=== PATIENT | male | born 1940 | race Caucasian/White ===

== ENCOUNTER 2017-10-17 11:01 | Observation (INO) | payer OTHER, BC ==
[~2017-10-17] VITALS: Ht 177.8 cm; Wt 87.9 kg
[2017-10-17 13:17] VITALS: BP 158/46; PULSE 60; TEMP 36.7; O2SAT 96; BMI 28.0
[2017-10-17] MEDS ORDERED: HYDR25TA4 PO (13:27)
[2017-10-17] MEDS ORDERED: FLUO10CA48 PO (13:27)
[2017-10-17] MEDS ORDERED: ATOR-26 PO (13:27)
[2017-10-17] MEDS ORDERED: LOSA100T65 PO (13:27)
[2017-10-17] MEDS ORDERED: RANI150T85 PO (13:27)
[2017-10-17] MEDS ORDERED: PLAVIX75 PO (13:27)
[2017-10-17] MEDS ORDERED: NTRGSL/4 SL (13:27)
[2017-10-17] MEDS ORDERED: FLAX12003 PO (13:27)
[2017-10-17] MEDS ORDERED: ONDA4TAB46 PO (13:27)
[2017-10-17] MEDS ORDERED: GLY/5 PO (13:27)
[2017-10-17] MEDS ORDERED: ALBU18002 INH (13:27)
[2017-10-17] MEDS ORDERED: PANT40TA PO (13:27)
[2017-10-17] MEDS ORDERED: ISOS30TA3 PO (13:27)
[2017-10-17] MEDS ORDERED: INSDGI SC (13:27)
[2017-10-17] MEDS ORDERED: ASPCH81X PO (13:27)
[2017-10-17] MEDS ORDERED: ATEN50TA8 PO (13:27)
[2017-10-17] MEDS ORDERED: FOLI1TAB8 PO (13:27)
[2017-10-17] MEDS ORDERED: FLUT1INH INH (13:27)
--- NOTE | 2017-10-17 13:38 | History & Physical Bridge Note ---
H&P Re-Evaluation Bridge Note: I have examined the patient, reviewed the History & Physical and in the interval since the performance of the History & Physical I have noted the following changes of clinical significance: Pt transferred due to CHB and requiring dual chamber pacemaker
--- NOTE | 2017-10-17 13:38 | Pre Sedation Assessment ---
Pre Sedation Assessment General Date of Sedation: Oct 17, 2017. Vital Signs Past 12 Hours Date Time Temp Pulse Resp B/P (MAP) Pulse Ox O2 Delivery O2 Flow Rate FiO2 10/17/17 13:17 36.7 60 18 158/46 (83) 96 Nasal Cannula 2 Review Cardiovascular: + bradycardia Lungs: lungs clear Pre-Sedation Airway Assessment Smoking Status: Former Smoker Hx of Sleep Apnea: No Short Thick Neck: No Thyro-mental Distance: > 3 Finger Breadths Oral Cavity: WNL Mallampati Classification: Class II ASA Classification: Class II NPO Status Date of Last Intake of Fluids: Oct 16, 2017 Time of Last Intake of Fluids: 1999 Date of Last Intake of Solids: Oct 16, 2017 Time of Last Intake of Solids: 1999 Procedure Planning Contraindications for Sedation: None Current Medications Reviewed: Yes Notes The planned sedation has been discussed with the patient. Informed Consent was obtained. I have identified the patient, determined the appropriateness of sedation and have assessed the patient immediately prior to the procedure. All medicine(s) and interventions are by my order.
[2017-10-17] MEDS ORDERED: CEFAZOLIN SOD 1 GM VIAL ONE (13:48)
[2017-10-17] MEDS ORDERED: MIDAZOLAM HCL 5 MG/ML 1 ML VIAL ONE (13:48)
[2017-10-17] MEDS ORDERED: FENTANYL CITRATE INJ 50 MCG/1 ML 2 ML VIAL ONE (13:48)
[2017-10-17] MEDS ORDERED: WATER, STERILE FOR INJ 20 ML VIAL ONE (13:49)
[2017-10-17] MEDS ORDERED: BUPIVACAINE 0.5 % 5 MG/1 ML MPF 30ML VIAL ONE (14:01)
[2017-10-17] MEDS ORDERED: LIDOCAINE HCL 1% 20 ML VIAL ONE (14:01)
--- NOTE | 2017-10-17 15:03 | [facility] Post Operative Brief Note ---
Immediate Operative Summary Operative Date Oct 17, 2017. Pre-Operative Diagnosis chb Post-Operative Diagnosis same Procedure(s) Performed dual chamber pacemaker Surgeon leah akbar Wildlife Bi[employer] Research Ecologist Surgeon(s) none Estimated Blood Loss <10cc Findings See Below see offiical report Fluids (cc crystalloids) 150cc Specimens none Drains None Anesthesia Type IV Sedat Cons RN Only Complication(s) none Disposition Accompanied Pt To Recover: yes Disposition: PCU
--- NOTE | 2017-10-17 15:03 | Post Sedation Assessment ---
Post Sedation Assessment General Date of Sedation Oct 17, 2017. Vital Signs: Vital Signs Past 12 Hours Date Time Temp Pulse Resp B/P (MAP) Pulse Ox O2 Delivery O2 Flow Rate FiO2 10/17/17 14:55 79 16 157/65 (95) 96 Mask 4 10/17/17 13:17 36.7 60 18 158/46 (83) 96 Nasal Cannula 2 Post Procedure Recovery Score Activity: (2) Moves 4 extremities * Respiration: (2) Deep breath/cough Circulation: (2) +/-20% PreAnes Value Consciousness: (2) Fully Awake Oxygen Saturation: (1) O2 needed for >90% Post Anesthesia Score: 9 Discharge Sedation Level of Care: Fast Track Phase II Post Sedation Plan On clinical assessment, the patient appears to have tolerated the sedation without complications. Patient is recovering as anticipated. Patient will continue to be monitored by nursing and may be discharged when sedation discharge criteria are met per below protocol. Upon Completions of procedure and additional 15 minutes continue every 5 minute vital signs and the P.A.R. score; then discharge to a Phase I or Fast Track to Phase II per the following guidelines: * Discharge Patient to appropriate Phase II area if PAR is 8 or greater or return to pre- procedure baseline. The post - procedure orders will be as directed. * If PAR score is less than 8 or not return to pre-procedure baseline then patient will follow Phase I monitoring till PAR is reached for Phase II. The Phase I may be done in procedure room or may call to secure a Phase I area. * If naloxone or flumazenil are used for reversal, hold in Phase I for an additional 60 -120 minutes before discharge to Phase II. Please call the Sedation Physician to re-evaluate and complete post-note for discharge to Phase II area. Do NOT discharge from procedure sedation or Phase 1 until post- sedation evaluation note is complete by procedure /sedation MD Sedation Discharge Instructions to be given to the patient at discharge to home.
--- NOTE | 2017-10-17 15:06 | Discharge Instructions ---
Discharge Instructions Date of Service Oct 17, 2017. Admission Reason for Admission: Complete Heart Block Discharge Discharge Diagnosis / Problem: chb Discharge Goals Goal(s): Improve function Activity Recommendations Activity Limitations: as noted below Lifting Limitations: no more than 10 pounds (do not lift more than 10 pounds with left arm for 2 weeks; do not lift the left elbow over the left shoulder for 1 month) Shower/Bathe: tomorrow Driving or Machine Use: resume 1 day after discharge . Instructions / Follow-Up Instructions / Follow-Up ACTIVITY RECOMMENDATIONS: * Do not raise affected arm over head for 4 weeks. SPECIAL CARE INSTRUCTIONS: * If bleeding occurs, apply direct pressure to area for 5 minutes. * Call your doctor if you have severe pain, fever, drainage or bleeding at site. * Keep dry for 24 hours. * Keep any scheduled doctor's appointment. * Implant Card - hand held device with website information given. SKIN IRRITATION: * You may experience some redness and/or swelling in the area where radiation was administered. If any skin irritation occurs, please contact your family physician. FOLLOW UP VISIT: Keep any scheduled doctor appointments. Current Hospital Diet Patient's current hospital diet: Discharge Diet Recommended Diet: AHA Diet (Heart Healthy) Procedures Procedures Performed: dual chamber pacemaker Pending Studies Studies pending at discharge: no Medical Emergencies . Who to Call and When: Medical Emergencies: If at any time you feel your situation is an emergency, please call 911 immediately. . Non-Emergent Contact Non-Emergency issues call your: Sports Team Marketing Intern . . "Provider Documentation" section prepared by Miriam De Jesus. . VTE Core Measure Inpt VTE Proph given/why not?: Treatment not indicated
--- NOTE | 2017-10-17 15:11 | Discharge Summary ---
Discharge Summary Date of Service Oct 17, 2017. Discharge Summary Admission Date: Oct 17, 2017 at 13:03 Discharge Date: Oct 18, 2017 Discharge Disposition: Home Principal Diagnosis: CHB Secondary Diagnoses/Problems: cad s/p BMS to RCA in 2006 PVD s/p Left CEA and Left femoral artery arterectomy HTN HLD DM Flu last week Procedures: Dual chamber rare responsive permanent pacemaker under fluoroscopic guidance Medication Reconciliation New Medications: Acetaminophen Tab (Tylenol) 325 Mg Tab 650 MG PO Q6 for Pain, #60 TAB Continued Medications: Albuterol Sulfate (Proair Respiclick) 108 Mcg/Act Aer 2 PUFFS INH QID PRN for Shortness of Breath Aspirin (Aspirin Chewable) 81 Mg Chew 81 MG PO DAILY Atenolol (Tenormin) 50 Mg Tab 25 MG PO DAILY, TAB Atorvastatin (Lipitor) 80 Mg Tab 1 TAB PO DAILY for 30 Days, #30 TAB 5 Refills Clopidogrel Bisulfate (Plavix) 75 Mg Tab 1 TAB PO DAILY for 90 Days, #90 TAB 1 Refill Flaxseed (Linseed) (Flaxseed Oil) 1 Cap Cap 1 CAP PO DAILY Fluoxetine (Prozac) 10 Mg Cap 10 MG PO DAILY, CAP Fluticasone Furoate-Vilanterol (Breo Ellipta) 1 Inh Inh 1 PUFFS INH DAILY Folic Acid (Folvite) 1 Mg Tab 1 TAB PO DAILY for 90 Days, #90 TAB 1 Refill Glyburide (Diabeta) 5 Mg Tab 1 TAB PO TID for 30 Days, #90 TAB 5 Refills Hydrochlorothiazide (Hctz) 25 Mg Tab 2 TAB PO DAILY for 30 Days, #60 TAB 5 Refills Insulin Glargine (Lantus) 100 Unit/Ml Inj 10 SC QPM, VIAL Isosorbide Mononitrate Ext Rel (Imdur Ext Rel) 30 Mg Ertab 0.5 TAB PO DAILY for 30 Days, #15 TAB 5 Refills Losartan Potassium (Cozaar) 100 Mg Tab 1 TAB PO DAILY for 30 Days, #30 TAB 5 Refills Nitroglycerin (Nitrostat) 0.4 Mg Tab 1 TAB SL UD, #100 TAB 3 Refills Ondansetron Hcl (Zofran) 4 Mg Tab 4 MG PO Q6 PRN for Nausea, TAB Pantoprazole (Protonix) 40 Mg Tab 40 MG PO DAILY, #30 TAB Ranitidine (Zantac) 150 Mg Tab 1 TAB PO BID for 30 Days, #60 TAB 3 Refills Admission Information Physical Exam (per Admitting): aaox3, NAD Supple No JVD Irregular bradycardia CTA b/l no w/r/r soft NT/ND No edema No focal deficits Skin intact Hospital Course Pt admitted for elective permanent pacemaker due to complete heart block. Pt underwent procedure without any complications monitored overnight and discharged home. ADDENDUM, DR ROTH 10/18/17: Impression: 77-year-old male 1. Presented with symptoms of fatigue, shortness of breath, due to high-grade AV block for which the patient underwent dual-chamber permanent pacemaker. Given his past history of trifascicular block, this was likely due to progression of his underlying conduction system disease as he had previously undergone an ischemic workup for this in October 2016. 2. History of normal LVEF, resting ejection fraction of 62% at the time of stress echocardiogram in [place] in October 2016 3. Type 2 diabetes mellitus, with elevated glucose overnight. This was likely because he was off of his schedule with having been nothing by mouth for the pacemaker procedure, the acute stress of his illness, and his oral anti- hyperglycemics having been held. Plan: Patient is stable for discharge from a pacemaker standpoint with normal device check this morning, stable chest x-ray findings without pneumothorax and with appropriate lead function. His pain is well controlled. His glucoses improved and therefore we have discontinued his insulin infusion this morning, his a.m. dose of glyburide has been administered along with his a.m. meal, and he received an extra 10 units of Lantus insulin this morning. He typically checks his blood glucose at home in the morning and at bedtime with readings at home between 50 and 200 mg per the patient. He is to resume his home schedule of glyburide 3 times a day with meals and Lantus 10 units at bedtime. Arrangements have been made for device check at the cardiology clinic in [place] within 7-10 days and EP follow-up thereafter. DELMAR Roth DO, 10/18/17 , 10:54 am. Total time spent on discharge = 30 minutes This includes examination of the patient, discharge planning, medication reconciliation, and communication with other providers. Discharge Instructions ACTIVITY RECOMMENDATIONS: * Do not raise affected arm over head for 4 weeks. SPECIAL CARE INSTRUCTIONS: * If bleeding occurs, apply direct pressure to area for 5 minutes. * Call your doctor if you have severe pain, fever, drainage or bleeding at site. * Keep dry 24 hours. * Keep any scheduled doctor's appointment. * Implant Card - hand held device with website information given. SKIN IRRITATION: * You may experience some redness and/or swelling in the area where radiation was administered. If any skin irritation occurs, please contact your family physician. FOLLOW UP VISIT: Keep any scheduled doctor appointments.
[2017-10-17] MEDS ORDERED: OXYCODONE/ACETAMINOPHEN 5-325 TAB PO PRN (15:15)
[2017-10-17] MEDS ORDERED: ACETAMINOPHEN 325 MG TAB PO PRN (15:15)
[2017-10-17] MEDS ORDERED: NITROGLYCERIN 0.4 MG SL PER TAB CHARGE SL PRN (15:15)
[2017-10-17] MEDS ORDERED: ONDANSETRON 4 MG TAB PO PRN (15:15)
[2017-10-17] MEDS ORDERED: GLUCAGON FOR INJ 1 MG VIAL SQ PRN (15:30)
[2017-10-17] MEDS ORDERED: DEXTROSE 50% 50 ML SYR IV PRN (15:30)
[2017-10-17] MEDS ORDERED: GLUCOSE 40% GEL 15 GM TUBE PO PRN (15:30)
[2017-10-17] MEDS ORDERED: GLUCOSE 10 TABS/TUBE PO PRN (15:30)
[2017-10-17 15:35] VITALS: BP 152/64; PULSE 85; TEMP 36.5; O2SAT 84; Ht 177.8 cm; Wt 87.9 kg
[2017-10-17] MEDS ORDERED: IV FLUIDS COMPLETED PRN (16:15)
--- NOTE | 2017-10-17 17:56 | OPERATIVE REPORT ---
DATE OF OPERATION: 10/17/2017 PREOPERATIVE DIAGNOSIS: Complete heart block. POSTOPERATIVE DIAGNOSIS: Same. PROCEDURE: Dual chamber responsive permanent pacemaker under fluoroscopic guidance. SURGEON: Dr. Miriam De Jesus. SODA ROOM OPERATOR: None. ANESTHESIA: Monitored conscious sedation, administered by Dr. Ralph Alarcon, under my supervision; start time 14:19 and end time 14:55; a total of 2 mg of Versed, 50 mcg of fentanyl. INTRAVENOUS FLUIDS: 150 mL. BLOOD LOSS: Less than 10 mL. COMPLICATIONS: None. CONDITION: Stable. ANTIBIOTICS: Two grams of Ancef IV. URINE OUTPUT: Not applicable. SPECIMENS: None. FINDINGS: See below. DRAINS: None. INDICATIONS: This is a 77-year-old gentleman with a past medical history for coronary artery disease, status post bare metal stent to the RCA in 2008 03, peripheral vascular disease status post left carotid endarterectomy as well as a left femoral arterectomy, hypertension, hyperlipidemia, diabetes who recently had influenza virus was successfully treated and it was negative on admission to [facility]. He presented to [facility] yesterday due to increasing shortness of breath, found to be in complete heart block and was transferred to [facility] to have a permanent pacemaker since no one was available in [place]. CONSENT: Consent was obtained prior to the patient going into electrophysiology lab. The patient explained of the risks, benefits and alternatives to procedure include but not limited to sudden cardiac , cardiac arrhythmias, cerebrovascular accident, myocardial infarction, injury to the blood vessels, chamber of the heart, lungs, bleeding and infection. The patient understood these risks and agreed to the procedure as planned. Informed consent was obtained. DESCRIPTION OF THE PROCEDURE: The patient was brought into the electrophysiology lab in a fasting state. He was connected to continuous ekg monitor tech. A time-out was performed to ensure patient identity and procedure correctly. The patient was prepped and draped over the left infraclavicular space in normal surgical standard fashion. Moderate conscious sedation was given throughout the procedure for patient's comfort level. Gould precautions were maintained throughout the procedure. A 20 mL of 1% lidocaine, bupivacaine mixture were given in the left deltopectoral groove. The incision was made in left deltopectoral groove. Blunt dissection was performed down to the cephalic vein, the cephalic vein was identified and isolated using 0 silk ties. A plane was nicked with 11 blade and then a Glidewire was inserted without any resistance. An 8-Austrian sheath was inserted over the guidewire without any resistance. The dilator was removed and a second guidewire was inserted through the sheath to allow for retained venous access. The sheath was removed, flushed and the dilator reinserted over it and then the sheath was reinserted over the guidewire. The guidewire and dilator were removed. The right ventricular pacing lead was advanced into the right ventricle and positioned into the right ventricular apex under fluoroscopic guidance. There was adequate pacing and sensing thresholds and no diaphragmatic stimulation with high output pacing. An 8-Austrian sheath was peeled away and lead was fixated to pectoralis muscle using 0 silk suture. A second 8-Austrian sheath was inserted over the retained guidewire without any resistance. The guidewire and dilator were removed. The right atrial pacing lead was advanced into the right atrium and positioned into the right atrial appendage under fluoroscopic guidance. There was adequate pacing and sensing thresholds and no diaphragmatic stimulation with high output pacing. The 8-Austrian sheath was peeled away and lead was fixated to pectoralis muscle using 0 silk suture. Another 10 mL of 1% lidocaine, bupivacaine mixture were given in the pectoralis fascia and then using blunt dissection within the fascia over the pectoralis muscle, a pacemaker pocket was created. The pocket was flushed with copious amounts of bacitracin saline wash and inspected for hemostasis. The pulse generator was then attached to leads making sure that the leads were lying flat, making sure that the pins were in appropriate position, passed the set screws and the set screws were all tightened. The pulse generator was then placed in the pocket, making sure that the leads were lying flat beneath the device. A stay stitch using 0 silk suture was used to secure the device to the pectoralis muscle. Incision was closed in a 3-layer fashion using 2-0 Vicryl interrupted suture followed by 3-0 Vicryl sutures followed by a 4-0 Monocryl stitch and Dermabond was applied. EQUIPMENT: 1. Pulse generator is a [employer] Advisa DR LOW Pal [id number], serial#[id number]. 2. Right atrial lead Medtronic 5076-52 cm, serial#[id number]. 3. Right ventricular lead, Medtronic 5076-58 cm, serial #[id number]. INTRAOPERATIVE TESTIN. Right atrial lead: P-wave 3.6 millivolts, impedance 615 ohms, threshold 1.6 volts at 3.2 milliamps. Right ventricular lead: R-wave 11.1 millivolts, impedance 1166 ohms, threshold 0.5 volts at 0.5 milliamps. FINAL MEASUREMENTS THROUGH THE DEVICE: 1. Right atrial lead: P-wave 3.9 millivolts, impedance 475 ohms, threshold 0.5 volts at 0.4 milliseconds. 2. Right ventricular lead: R-wave is 18.5 millivolts, impedance 798 ohms, threshold 0.75 volts at 0.4 milliseconds. FINAL PARAMETERS: DDD 60/120. Right atrial amplitude 3.5 volts, pulse width 0.4 milliseconds, sensitivity 0.3 millivolts. Right ventricular amplitude 5 volts, pulse width 0.4 milliseconds, sensitivity 1.2 millivolts. IMPRESSION: Successful implantation of a dual chamber rate responsive permanent pacemaker under fluoroscopic guidance secondary to complete heart block. PLAN: Monitor patient overnight, 12-lead ECG, chest x-ray. He is not allowed to lift the left elbow over the left shoulder for 1 month. He cannot lift more than 10 pounds with the left arm for 2 weeks. He can follow up in our [place] office for a device check in 7-10 days. Continue his home medicines including restarting the beta mir. I attest to the content of the Intraoperative Record and any orders documented therein. Any exceptions are noted below. BALDEMAR
[2017-10-17 20:07] VITALS: BP 132/72; PULSE 79; TEMP 36.5; O2SAT 92
[2017-10-17] MEDS ORDERED: INSULIN GLARGINE SOLOSTAR 100 UNITS/ML 3 ML PEN SC STA (20:47)
[2017-10-17] MEDS ORDERED: INSULIN HUMAN REGULAR PER UNIT 10 UNITS in SYRINGE 0 ML SC STA (20:55)
[2017-10-17] MEDS ORDERED: INSULIN GLARGINE SOLOSTAR 100 UNITS/ML 3 ML PEN SC SCH (21:00)
[2017-10-17] MEDS: RANITIDINE HCL 150 MG TAB PO SCH (21:28)
[2017-10-17 21:39] VITALS: O2SAT 93
[2017-10-17] MEDS ORDERED: INSULIN IV INFUSION PROTOCOL STA (23:41)
[2017-10-17] MEDS ORDERED: MODERATE STRESS LEVEL ONE (23:45)
[2017-10-17] MEDS ORDERED: HHS GOAL RANGE 250-350 mg/dl ONE (23:45)
--- NOTE | 2017-10-17 23:51 | Cardiology Progress Note ---
Cardiology Progress Note Date of Service Oct 17, 2017. Cardiology Progress Note At 8:40 pm , I had spoke to patient's nurse has HS glucose was 405 mg /dl. Pt was reportedly alert and oriented . Regular insulin 10 units, and Lantus 15 units Sq ordered. At repeat glucose performed prior to 2nd telephone conversation at 11:48 pm, glucose 350 mg/dl. Will start IV insulin infusion per protocol, moderate stress, goal glucose 250 to <350. orders entered.
[2017-10-17 23:58] VITALS: BP 144/73; PULSE 68; TEMP 36.6; O2SAT 93
[2017-10-18] MEDS ORDERED: INSULIN REGULAR 250 UNITS in SODIUM CHLORIDE 0.9% 250ML 250 ML IV SCH (00:30)
[2017-10-18] MEDS ORDERED: INSULIN HUMAN REGULAR IV BOLUS 2 UNIT in SYRINGE 0 ML IV ONE (00:30)
[2017-10-18] MEDS ORDERED: INSULIN PROTOCOL GOAL RANGE ONE (00:30)
[2017-10-18 03:27] VITALS: BP 139/72; PULSE 71; TEMP 36.6; O2SAT 91
[2017-10-18 06:52] LABS: BASO % 0.3 %; BASO ABS # 0.02 K/uL (0-0.2); EOS % 1.1 %; EOS ABS # 0.08 K/uL (0-0.5); HEMATOCRIT 39.4 % (42-52); HEMOGLOBIN 13.8 g/dL (14.0-18.0); IG# 0.03 K/uL (0.00-0.02); LYMPH % 12.9 %; LYMPH ABS # 0.97 K/uL (1.2-3.4); MEAN CELL VOLUME 88.1 fL (80-100); MEAN CORPUSCULAR HEMOGLOBIN 30.9 pg (25-34); MEAN PLATELET VOLUME 9.3 fL (7.4-10.4); MONO % 9.7 %; MONO ABS # 0.73 K/uL (0.11-0.59); NEUT % 75.6 %; PLATELET COUNT 201 K/uL (130-400); RED CELL DISTRIBUTION WIDTH SD 41.5 fL (36.4-46.3); WHITE BLOOD COUNT 7.53 K/uL (4.8-10.8)
[2017-10-18 07:11] LABS: ALBUMIN 3.2 gm/dl (3.4-5.0); CALCIUM 8.5 mg/dl (8.5-10.1); CREATININE 1.09 mg/dl (0.60-1.40); POTASSIUM 3.5 mmol/L (3.5-5.1)
[2017-10-18 07:14] LABS: TOTAL PROTEIN 6.6 gm/dl (6.4-8.2)
--- NOTE | 2017-10-18 07:30 | DIAGNOSTIC IMAGING REPORT ---
CHEST 2 VIEWS ROUTINE CLINICAL HISTORY: post new pacer, please remove manager cardiac during CXR COMPARISON STUDY: No previous studies for comparison. FINDINGS: Note is made of a dual lead left subclavian pacemaker. Lead tips project over the right atrial appendage and right ventricle. There is mild cardiomegaly without evidence for pulmonary edema. Nipple shadows project over the chest. There is no pneumothorax. There are possible trace bilateral pleural effusions. IMPRESSION: 1. No pneumothorax status post placement of a dual lead left subclavian pacemaker. 2. Possible trace bilateral pleural effusions. No evidence for pulmonary edema. Electronically signed by: Jason Coyle M.D. 10/18/2017 7:28 AM Dictated Date/Time: 10/18/2017 7:25 AM
[2017-10-18 07:59] VITALS: BP 127/69; PULSE 81; TEMP 36.5; O2SAT 96
[2017-10-18] MEDS ORDERED: INSULIN ASPART 100 UNITS/ML 3 ML PEN SC SCH (08:00)
[2017-10-18] MEDS: RANITIDINE HCL 150 MG TAB PO SCH (08:28)
[2017-10-18] MEDS ORDERED: POTASSIUM CHLORIDE 20 MEQ TABCR PO STA (08:55)
[2017-10-18] MEDS ORDERED: HYDROCHLOROTHIAZIDE 25 MG TAB PO SCH (09:00)
[2017-10-18] MEDS ORDERED: LOSARTAN POTASSIUM 50 MG TAB PO SCH (09:00)
[2017-10-18] MEDS ORDERED: FLUOXETINE HCL 10 MG CAP PO SCH (09:00)
[2017-10-18] MEDS ORDERED: ATORVASTATIN 40 MG TAB PO SCH (09:00)
[2017-10-18] MEDS ORDERED: ISOSORBIDE MONONITRATE 30 MG TABCR PO SCH (09:00)
[2017-10-18] MEDS ORDERED: CLOPIDOGREL BISULFATE 75 MG TAB PO SCH (09:00)
[2017-10-18] MEDS ORDERED: ASPIRIN 81 MG ECTAB PO SCH (09:00)
[2017-10-18] MEDS ORDERED: PANTOprazole SOD 40 MG TAB PO SCH (09:00)
[2017-10-18] MEDS ORDERED: INSULIN GLARGINE SOLOSTAR 100 UNITS/ML 3 ML PEN SC STA (09:29)
--- NOTE | 2017-10-18 10:52 | Cardiology Follow-Up ---
Subjective General Date of Service: Oct 18, 2017. Chief Complaint: follow up pacemaker implanation Pt evaluation today including: conversation w/ patient, physical exam History of Present Illness The patient is a 77 year old male seen in cardiology follow-up in coverage of Dr. De Jesus. The patient had initially presented to [facility] for complaints of fatigue, shortness of breath, and recent cough. He was treated for influenza about a week ago but had persistent fatigue and shortness of breath. 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 Transient 2-1 AV block was noted during a stress echocardiogram at that time. Due to concerns that this was perhaps ischemia mediated he underwent cardiac catheterization at [place] with findings of patent stents, he had one stenosis in the circumflex territory that was borderline positive by FFR, and PCI was attempted but was unsuccessful and therefore ongoing medication management been pursued in the interim time. The patient was transferred from [place] yesterday to [facility] for EP evaluation and underwent dual-chamber [employer] pacemaker yesterday which he tolerated well. Last evening at just before 9 PM he was found to be hyperglycemic with blood glucose levels in the range of 405 mg/dL. Because the patient had been nothing by mouth throughout the day, his glyburide had been held earlier. He received 10 units of regular insulin as well as 15 units of Lantus last night pulling his blood glucose was rechecked 2 hours later it was still elevated and therefore he was placed on an insulin infusion overnight last night with subsequent improvement in his blood glucose this morning. This morning he feels well. On telemetry overnight last night sinus rhythm with frequent ventricular pacing was noted. His device has been checked by the [employer] rep with noted appropriate function. He has been reprogrammed to have a long AV delay to try to encourage [place] conduction if possible with demand pacing is necessary to prevent bradycardia. His chemistry panel and CBC are stable morning. Chest x-ray was performed that reveals appropriate lead placement with no evidence of pneumothorax. The official radiology report recent the question of perhaps trace bilateral pleural effusions, that on physical exam and on my personal review of the chest x-ray, did not seem to be clinically significant sleep patient is not volume overloaded on exam. Allergies Coded Allergies: No Known Allergies (Unverified , 10/17/17) Social History Smoking Status: Former Smoker Hx Tobacco Use In Past Year?: No Hx Alcohol Use - Type And Amou: Yes (4 shots of whiskey daily) Hx Substance Use - Type And Am: No Physical Exam Vital Signs Last Vital Signs Documentation Date Time Temp Pulse Resp B/P (MAP) Pulse Ox O2 Delivery O2 Flow Rate FiO2 10/18/17 07:59 36.5 81 16 127/69 (88) 96 10/18/17 03:11 Room Air 10/17/17 20:33 2.0 Physical Exam Constitutional: Level of Distress: NAD Ambulation: ambulating normally Head: normocephalic ENMT: normal ENT inspection Neck: supple Lungs: Auscultation: no wheezing, no rales/crackles, no rhonchi Cardiovascular: Heart Auscultation: RRR, no murmurs, no rubs Abdomen: Inspection & Palpation: soft, non-distended Extremities: no cyanosis, no edema Neurologic: Gait & Station: pertinent finding (no focal deficits) Additional Comments: Chest: Left sided pacemaker pocket incision is clean dry and intact. Assessment and Plan Assessment and Plan Impression: 77-year-old male 1. Presented with symptoms of fatigue, shortness of breath, due to high-grade AV block for which the patient underwent dual-chamber permanent pacemaker. Given his past history of trifascicular block, this was likely due to progression of his underlying conduction system disease as he had previously undergone an ischemic workup for this in October 2016. 2. History of normal LVEF, resting ejection fraction of 62% at the time of stress echocardiogram in [place] in October 2016 3. Type 2 diabetes mellitus, with elevated glucose overnight. This was likely because he was off of his schedule with having been nothing by mouth for the pacemaker procedure, the acute stress of his illness, and his oral anti- hyperglycemics having been held. Plan: Patient is stable for discharge from a pacemaker standpoint with normal device check this morning, stable chest x-ray findings without pneumothorax and with appropriate lead function. His pain is well controlled. His glucoses improved and therefore we have discontinued his insulin infusion this morning, his a.m. dose of glyburide has been administered along with his a.m. meal, and he received an extra 10 units of Lantus insulin this morning. He typically checks his blood glucose at home in the morning and at bedtime with readings at home between 50 and 200 mg per the patient. He is to resume his home schedule of glyburide 3 times a day with meals and Lantus 10 units at bedtime. Arrangements have been made for device check at the cardiology clinic in [place] within 7-10 days and EP follow-up thereafter. Laboratory Results Last 24 Hours Test 10/17/17 20:09 10/17/17 23:20 10/18/17 01:47 10/18/17 02:46 Bedside Glucose 407 mg/dl 326 mg/dl 225 mg/dl 206 mg/dl Test 10/18/17 03:48 10/18/17 04:47 10/18/17 06:21 10/18/17 06:47 Bedside Glucose 183 mg/dl 162 mg/dl 103 mg/dl White Blood Count 7.53 K/uL Red Blood Count 4.47 M/uL Hemoglobin 13.8 g/dL Hematocrit 39.4 % Mean Corpuscular Volume 88.1 fL Mean Corpuscular Hemoglobin 30.9 pg Mean Corpuscular Hemoglobin Concent 35.0 g/dl Platelet Count 201 K/uL Mean Platelet Volume 9.3 fL Neutrophils (%) (Auto) 75.6 % Lymphocytes (%) (Auto) 12.9 % Monocytes (%) (Auto) 9.7 % Eosinophils (%) (Auto) 1.1 % Basophils (%) (Auto) 0.3 % Neutrophils # (Auto) 5.70 K/uL Lymphocytes # (Auto) 0.97 K/uL Monocytes # (Auto) 0.73 K/uL Eosinophils # (Auto) 0.08 K/uL Basophils # (Auto) 0.02 K/uL RDW Standard Deviation 41.5 fL RDW Coefficient of Variation 13.0 % Immature Granulocyte % (Auto) 0.4 % Immature Granulocyte # (Auto) 0.03 K/uL Sodium Level 137 mmol/L Potassium Level 3.5 mmol/L Chloride Level 102 mmol/L Carbon Dioxide Level 26 mmol/L Anion Gap 9.0 mmol/L Blood Urea Nitrogen 34 mg/dl Creatinine 1.09 mg/dl Est Creatinine Clear Calc Drug Dose 65.4 ml/min Estimated GFR () 76.5 Estimated GFR (Non- 66.0 BUN/Creatinine Ratio 31.2 Random Glucose 125 mg/dl Calcium Level 8.5 mg/dl Total Bilirubin 0.6 mg/dl Aspartate Amino Transf (AST/SGOT) 13 U/L Alanine Aminotransferase (ALT/SGPT) 25 U/L Alkaline Phosphatase 61 U/L Total Protein 6.6 gm/dl Albumin 3.2 gm/dl Globulin 3.4 gm/dl Albumin/Globulin Ratio 0.9 Test 10/18/17 07:05 10/18/17 08:09 10/18/17 09:08 Bedside Glucose 128 mg/dl 139 mg/dl 182 mg/dl
[2017-10-18] MEDS ORDERED: ACET-1693 PO (10:58)
[2017-10-18] MEDS ORDERED: ACETAMINOPHEN 325 MG TAB PO STA (11:04)
[2017-10-18 11:42] VITALS: BP 143/60; PULSE 60; TEMP 36.9; O2SAT 93
[2017-10-18 12:19] VITALS: BP 143/60; PULSE 60; TEMP 36.9; O2SAT 93
== END 2017-10-18 12:50 | disposition home or self-care (01) ==
LOC: INTOOBSV 13:03 → C.2T 13:03
PROVIDERS: ADMIT Internal Medicine; ATTEND Internal Medicine
DX: I44.2 Atrioventricular block, complete (principal); I25.10 Atherosclerotic heart disease of native coronary artery without angina pectoris; I73.9 Peripheral vascular disease, unspecified; I10 Essential (primary) hypertension; E78.5 Hyperlipidemia, unspecified; E11.9 Type 2 diabetes mellitus without complications; F10.21 Alcohol dependence, in remission; E11.319 Type 2 diabetes mellitus with unspecified diabetic retinopathy without macular edema; Z86.73 Personal history of transient ischemic attack (TIA), and cerebral infarction without residual deficits; E11.42 Type 2 diabetes mellitus with diabetic polyneuropathy; Z95.5 Presence of coronary angioplasty implant and graft; Z98.49 Cataract extraction status, unspecified eye; Z96.642 Presence of left artificial hip joint; Z83.3 Family history of diabetes mellitus; Z82.49 Family history of ischemic heart disease and other diseases of the circulatory system; Z82.3 Family history of stroke; Z87.891 Personal history of nicotine dependence